=== PATIENT | female | born 1965 | race Caucasian/White ===

== ENCOUNTER 2017-01-01 06:30 | Day surgery (SDC) | payer BC ==
[2017-01-01] MEDS ORDERED: fentaNYL 100 MCG/2 ML SDV ONE (06:57)
[2017-01-01] MEDS ORDERED: Midazolam 1 MG/ML 2 ML SDV ONE (06:57)
[2017-01-01] MEDS ORDERED: Propofol 200 MG/20 ML SDV ONE (06:57)
[2017-01-01] MEDS ORDERED: Sodium Chloride 0.9% 1,000 ML IV SCH (07:00)
[2017-01-01 08:45] VITALS: BP 116/60
--- NOTE | 2017-01-01 12:31 | OR ---
DATE OF PROCEDURE: 01/01/2017 PROCEDURE: Colonoscopy. FINDINGS: Normal colonoscopy. COMPLICATIONS: None. RISK ANALYST: None. PREOPERATIVE DIAGNOSIS: Screening colonoscopy. POSTOPERATIVE DIAGNOSIS: Screening colonoscopy. RISKS: Risks, benefits, alternatives, and limitations, including, but not limited to infection, bleeding, and perforation were explained to the patient and she wished to proceed. PROCEDURE IN DETAIL: The patient was placed in left lateral decubitus position. Digital exam was performed without abnormality. The scope was introduced and advanced atraumatically to the ileocecal valve. The scope was brought back to the ascending, transverse, descending colon, and retroflexed. No evidence of old or new blood. No polyps. No masses. No abnormalities on retroflexion. The patient tolerated the procedure well. Tre Grayson MD /[id number]
== END 2017-01-01 09:00 | disposition home or self-care (01) ==
LOC: JP.SDS 06:30
PROVIDERS: ATTEND Surgery
DX: Z12.11 Encounter for screening for malignant neoplasm of colon (principal)
CPT/HCPCS: 45378; J2250; J2704; J3010; J7040